=== PATIENT | male | born 1985 | race Caucasian/White ===

== ENCOUNTER 2017-12-12 04:45 | Emergency (ER) | payer MEDICAID ==
[~2017-12-12] VITALS: Ht 170.2 cm; Wt 68.2 kg
[~2017-12-12 04:45] MED LIST: ACET-2006 PO
[2017-12-12 04:48] VITALS: BP 144/87
[2017-12-12] MEDS ORDERED: TOLN30CR TP (05:09)
== END 2017-12-12 05:23 ==
LOC: ER 04:45
DX: B35.3 Tinea pedis (principal); G47.419 Narcolepsy without cataplexy; F17.200 Nicotine dependence, unspecified, uncomplicated; F12.10 Cannabis abuse, uncomplicated; F15.10 Other stimulant abuse, uncomplicated; Z86.14 Personal history of Methicillin resistant Staphylococcus aureus infection; Z56.0 Unemployment, unspecified; Z79.899 Other long term (current) drug therapy
CPT/HCPCS: 82948; 99283

== ENCOUNTER 2022-05-02 04:39 | Emergency (ER) | payer MEDICAID ==
[~2022-05-02 04:39] MED LIST changes: +TOLN30CR6 TP
== END 2022-05-02 05:16 | disposition left against medical advice (07) ==
LOC: ER 04:39
DX: K08.89 Other specified disorders of teeth and supporting structures (principal); Z53.21 Procedure and treatment not carried out due to patient leaving prior to being seen by health care provider

== ENCOUNTER 2025-03-06 10:37 | Emergency (ER) | payer MEDICAID ==
[~2025-03-06] VITALS: Ht 167.6 cm; Wt 75.0 kg
[2025-03-06 10:40] VITALS: BP 123/75; PULSE 72; O2SAT 95
--- NOTE | 2025-03-06 10:45 | Physician Documentation ---
History of Present Illness ~ Chief Complaint: Back Pain Stated Complaint: BACK PAIN Time Seen by MD: 10:40 Primary Medical Doctor: NONE HPI 39-year-old gentleman who is currently experiencing homelessness, had his vehicle breakdown way out in [facility]. He attempted to push the vehicle, however experienced this sudden onset of severe back pain in the right side of his back radiating into his right buttock. This forced him to collapse. The result of the collapse he hit his head on his car. Positive loss of consciousness. No urinary incontinence, no urinary retention, no fecal incontinence, no saddle paresthesias. He smoked methamphetamines yesterday. Denies any abdominal pain, no ripping or tearing chest pain, abdominal pain, no focal deficits. No migratory pain. Medication Reconciliation Allergies: Coded Allergies: No Known Allergies (Unverified , 12/12/17) Scheduled Acetaminophen (Acetaminophen Extra Strength), 1 TAB PO Q6H Tolnaftate (Tinactin), 1 APPLIC TP BID Past Medical History Past Medical History: Cellulitis, MRSA Abscess, Anxiety Past Surgical History: abdominal surgery Alcohol Use: None Drug Use: marijuana, methamphetamine Lives with: Family Lives In: Home Occupation: unemployed Review of Systems ROS 10 point review of systems was performed and unless noted above in HPI is negative for acute process/complaint. Physical Exam Physical Exam Vital Signs: Heart Rate: 72, Respiratory Rate: 16, BP: 123/75, Pulse Oximetry: 95, Weight: 75.000 Oxygen Flow Rate: 0 Physical Exam GENERAL: Awake, alert, oriented, GCS 15, no apparent distress, non-toxic appearing, answers questions, follows commands appropriately. HEENT: Atraumatic, normocephalic, pupils equal, extraocular muscles intact, sclerae anicteric, mucus membranes moist, oropharynx is clear, no stridor. NECK: supple, full active range of motion, trachea midline, no thyromegaly, no lymphadenopathy, no JVD. CARDIOVASCULAR: regular rate/rhythm, no murmurs/gallops/rubs, Pulses are 2+ in all extremities and symmetric. Capillary refill less than 2 seconds. PULMONARY: Nonlabored, good air movement ,no respiratory distress, speaking in full sentences, clear to auscultation bilaterally, no wheezing, no ronchi, no rales, no accessory muscle use. GASTROINTESTINAL: Soft, non-tender, non-distended, normal active bowel sounds, no organomegaly, no pulsatile masses, no CVA tenderness. NEUROLOGIC: Lucid with normal mental status. Normal facial symmetry. Moves all extremities symmetrically and with purpose. No truncal ataxia. Speech is fluid without evidence of dysarthria or aphasia, no focal deficits appreciated. MUSCULOSKELETAL: There is full range of motion of all extremities. There is no joint pain or joint swelling or joint erythema. There is no muscle pain or tenderness or swelling. EXTREMITIES: warm, well-perfused, no cyanosis, no clubbing, no edema, no acute deformities. Skin: warm, dry, no rashes or lesions, no jaundice, no petechiae orpurpura. No ecchymosis. PSYCHIATRIC: Normal affect, normal insight, normal concentration. Focused exam: [] Progress Results/Orders Results/Orders Orders - SANDEEP BANKS DO Ct Head (03/06/25 10:41) Ct Lumbar Spine (03/06/25 10:41) Completed Orders - SANDEEP BANKS DO Orphenadrine Citrate Inj. (Norflex Inj.) (03/06/25 10:45) Ketorolac Trometh 30mg/Ml Vial (Toradol (03/06/25 10:45) Dexamethasone Tablet (Decadron Tablet) (03/06/25 10:50) Medications Received in ER Medications (Trade) Dose Ordered Sig/Pedro Route PRN Reason Start Time Stop Time Status Last Admin Dose Admin (Norflex inj.) 60 mg ONCE ONCE IM 03/06/25 10:45 03/06/25 10:46 DC 03/06/25 10:50 60 MG (Toradol inj. 30mg/ml) 30 mg ONCE ONCE IM 03/06/25 10:45 03/06/25 10:46 DC 03/06/25 10:51 30 MG (Decadron tablet) 10 mg ONCE ONCE PO 03/06/25 10:50 03/06/25 10:51 DC 03/06/25 10:51 10 MG Vital Signs 03/06/25 03/06/25 10:40 10:51 Pulse 72 Resp 16 16 B/P (MAP) 123/75 Pulse Ox 95 O2 Flow Rate 0 Medical Decision Making Findings Facility Status: ED Holds, E process The plan was discussed with the patient, who demonstrates clear understanding of the plan and is in agreement with the plan unless otherwise noted in the chart. All questions have been answered, all concerns were addressed unless otherwise documented. I was available throughout their ED stay for frequent reassessment and questions. Differential Diagnoses (considered and possible or likely): [Muscle spasm, sciatica, less likely lumbar spine fracture or dislocation, closed head injury, concussion, subdural, subarachnoid] ??Differential Diagnoses (considered and unlikely, not requiring evaluation currently): [Clinically no evidence of cauda equina or conus medullaris] MDM Data Please see [facility] for the following: Independent Historians and external Records Review. Historian: [Patient] Independent Historians: ?[EMS] Medication Management: [Reviewed medication list] Social History and determinants: [Reviewed] Please see the body of the note for the following: Any independent interpretations of ECG, imaging studies. All vitals signs/haemodynamics, ordered tests were independently reviewed and interpreted by myself. Nursing triage complaint and vitals reviewed, additional nursing notes were reviewed as available and I agree unless otherwise noted or documented in contradiction in the chart Vital Signs: Independently reviewed Labs: Independently interpreted Imaging: Independently interpreted Old Medical Records: Independently reviewed, see [facility] for relevant summary and information Pulse Oximetry: [97%] interpreted as [normal on room air] by me Additionally notably showing: [Hemodynamically stable] CT was ordered, but the gentleman in the refused because he was afraid of radiation. He prefers methamphetamines to the x-rays. Tests considered but not ordered include: [Hematologic workup has been considered but does not appear to be necessary given mechanical nature of the injury.] Social Determinants of Health Impact: Patient was evaluated in [facility], [facility] [place] healthcare due to below par ratio of patient to medical providers. [] Comorbid Conditions Impacting Present Evaluation and Care/Treatment: [Methamphetamine abuse] Management Discussions with other Healthcare Providers: [] Treatment and Disposition Medication Management (Given or considered): [Pain management]. See EMR for det ails Consideration for Hospitalization/Escalation/Deescalation of Care: Admission for observation has been considered, [however the patient is able to tolerate p.o., their symptoms are controlled, they are able to rely on oral medications, and their chief complaint/diagnosis can be managed on outpatient basis.] ?ED Course:?[Pain improved. He refused CTs. He eloped. Does have decision- making capacity and does not require recall] ?Shared decision making:?[] Code status:?FULL Please see the full Electronic Medical Record for full details of nursing documentation, medications list, other records of complete past medical history and conditions, vital signs, laboratory studies, and any radiologic study interpretations by radiologists. Portions of this note were completed using [employer] dictation software and as a result there may exist minor errors in spelling. I have reviewed elements of past family and social history and agree as included in note. Departure Disposition: 07 LEFT AWOL/ELOPED Impression: Primary Impression: Low back pain Condition: Improved Discharge Instructions: Acute Back Pain, Adult Referrals: NO PRIMARY CARE PROVIDER (PCP) Signature Scribe Signature: No scribe Attestation: This note accurately reflects clinical decisions, work performed by myself, Sandeep Banks, SANDEEP DAUGHERTY DO Mar 06, 2025 10:45
[2025-03-06] MEDS: orphenadrine citrate 60mg/2ml inj. IM ONE (10:50)
[2025-03-06 10:51] VITALS: RESP 16
[2025-03-06] MEDS: ketorolac trometh 30MG/ML vial 30 MG/ML VIAL IM ONE (10:51)
== END 2025-03-06 11:47 | disposition left against medical advice (07) ==
LOC: ER 10:37
DX: M54.50 Low back pain, unspecified (principal); F17.200 Nicotine dependence, unspecified, uncomplicated
CPT/HCPCS: 96372; 99284; J1885; J2360